=== PATIENT | male | born 1965 | race Caucasian/White ===

== ENCOUNTER 2018-05-09 08:10 | Day surgery (SDC) | payer MEDICAID ==
[2018-05-08 14:50] LABS: BASOPHILS % (AUTO) 0.2 % (0-1); EOSINOPHILS # (AUTO) 0.3 X10'3 (0-0.9); EOSINOPHILS % (AUTO) 6.9 % (0-6); LYMPHOCYTES # (AUTO) 1.5 X10'3 (1.1-4.8); LYMPHOCYTES % (AUTO) 30.2 % (21-51); MEAN CORPUSCULAR HEMOGLOBIN 29.7 PG (27.0-31.0); MEAN CORPUSCULAR HGB CONC 34.4 % (33.0-36.5); MEAN CORPUSCULAR VOLUME 86.6 FL (78-98); MONOCYTES # (AUTO) 0.6 X10'3 (0-0.9); NEUTROPHILS # (AUTO) 2.4 X10'3 (1.8-7.7); NEUTROPHILS % (AUTO) 49.7 % (42-75); PRE OP HEMOGLOBIN 14.1 g/dL (14.0-17.9); PRE OP PLATELET COUNT 212 X10'3 (140-440); RED BLOOD COUNT 4.73 X10'6 (4.70-6.10); RED CELL DISTRIBUTION WIDTH 13.7 % (11.5-14.5)
[2018-05-08 15:00] LABS: CLARITY,URINE CLEAR (Clear); COLOR,URINE YELLOW (Yellow); GLUCOSE, URINE NEGATIVE (Neg); KETONES,URINE NEGATIVE (Neg); LEUKOCYTE ESTERASE ,URINE NEGATIVE (Neg); NITRITES, URINE NEGATIVE (Neg); OCCULT BLOOD,URINE NEGATIVE (Neg); PROTEIN,URINE NEGATIVE (Neg); UROBILINOGEN,URINE 0.2 E.U/dL (0.2-1.0)
[2018-05-08 15:01] LABS: UA COLLECTION TYPE CLN CATCH MIDSTREAM
[2018-05-08 15:06] LABS: ALBUMIN 3.4 G/DL (3.4-5.0); ALBUMIN/GLOBULIN RATIO 0.9 (1.1-1.5); ALKALINE PHOSPHATASE 82 IU/L (46-116); BLOOD UREA NITROGEN 21 MG/DL (7-18); BUN/CREATININE RATIO 21.9 (5.4-32.0); CHLORIDE 106 MMOL/L (99-107); CREATININE 0.96 MG/DL (0.60-1.10); PRE OP ALT 74 U/L (30-65); PRE OP ANION GAP 6 (8-16); PRE OP AST 39 U/L (10-37); PRE OP BILIRUB, TOTAL 0.5 MG/DL (0.0-1.0); PRE OP GLUCOSE 105 MG/DL (70-104); PRE OP POTASSIUM 3.9 MMOL/L (3.4-5.1); PRE OP SODIUM 139 MMOL/L (135-145); TOTAL CARBON DIOXIDE 26.7 MMOL/L (24-32); eGFR 82 ML/MIN
[~2018-05-09] VITALS: Ht 177.8 cm; Wt 91.0 kg
[2018-05-09] VITALS (17 sets, daily range): BP systolic 128–154; BP diastolic 79–110
[~2018-05-09 08:10] MED LIST: IBUP-24 PO; famotidine 20mg tablet PO ONE; ringers solution, lacted 1,000 ML IV SCH
[2018-05-09] MEDS ORDERED: BUPIVAcaine/PF 7.5mg/ml (0.75%) 10ml vial ONE (08:59)
[2018-05-09] MEDS ORDERED: ceFAZolin 1000mg inj ONE (08:59)
[2018-05-09] MEDS ORDERED: ceFOXitin 2 GM ADDvantage bag 100 ML IV ONE (09:00)
[2018-05-09] MEDS ORDERED: dexamethasone sod phosphate 10mg/ml inj ONE (09:09)
[2018-05-09] MEDS ORDERED: ondansetron/PF 4mg/2ml inj ONE (09:09)
[2018-05-09] MEDS ORDERED: sevoflurane 250ml liquid IH ONE (09:09)
[2018-05-09] MEDS ORDERED: midazolam 2 mg/2 ml injection ONE (09:13)
[2018-05-09] MEDS ORDERED: fentaNYL /PF 50mcg/ml 5ml ampule ONE (09:13)
[2018-05-09] MEDS ORDERED: propofol inj 20 ML IV ONE (09:14)
[2018-05-09] MEDS ORDERED: rocuronium 10mg/ml inj IV ONE (09:14)
[2018-05-09] MEDS ORDERED: LIDOcaine 2% (20mg/ml) 5ml vial ONE (09:14)
[2018-05-09] MEDS ORDERED: neostigmine methylsulfate 1 MG/ML 10ml vial ONE (09:46)
[2018-05-09] MEDS ORDERED: glycopyrrolate 0.2mg/ml inj ONE (09:46)
[2018-05-09] MEDS ORDERED: ondansetron/PF 4mg/2ml inj IV PRN (09:50)
[2018-05-09] MEDS ORDERED: ringers solution, lacted 1,000 ML IV SCH (09:50)
[2018-05-09] MEDS ORDERED: fentaNYL/PF 50MCG/1 ML 2ML syringe IV PRN ×2 (09:50)
[2018-05-09] MEDS ORDERED: labetalol 20mg/4ml (5mg/ml) syringe IV PRN (09:50)
[2018-05-09] MEDS ORDERED: morphine 4 MG/ML inj SYRINge IV PRN ×2 (09:50)
[2018-05-09] MEDS: hydrALAZINE 20mg/ml inj. IV PRN ×2 (11:43→11:54)
== END 2018-05-09 13:45 | disposition home or self-care (01) ==
LOC: PAS 08:10
PROVIDERS: ATTEND Surgery
DX: K40.91 Unilateral inguinal hernia, without obstruction or gangrene, recurrent (principal); K40.90 Unilateral inguinal hernia, without obstruction or gangrene, not specified as recurrent; F15.90 Other stimulant use, unspecified, uncomplicated; F17.210 Nicotine dependence, cigarettes, uncomplicated; G89.29 Other chronic pain; Z88.2 Allergy status to sulfonamides; Z79.1 Long term (current) use of non-steroidal anti-inflammatories (NSAID); Z72.89 Other problems related to lifestyle; Z86.14 Personal history of Methicillin resistant Staphylococcus aureus infection; Z98.52 Vasectomy status; Z98.890 Other specified postprocedural states
CPT/HCPCS: 36415; 49650; 49651; 80053; 81003; 85025; 93005; A4315; A6258; C1781; J0360; J0690; J0694; J1100; J2001; J2250; J2270; J2405; J2704; J2710; J3010; J3490; J7120

== ENCOUNTER 2022-12-04 13:17 | Emergency (ER) | payer MEDICAID ==
[~2022-12-04] VITALS: Ht 179.1 cm; Wt 79.5 kg
[~2022-12-04 13:17] MED LIST changes: -famotidine 20mg tablet PO ONE; -ringers solution, lacted 1,000 ML IV SCH
[2022-12-04 13:27] VITALS: BP 144/104
[2022-12-04] MEDS ORDERED: ketorolac trometh. 30mg/ml inj. IM ONE (14:40)
--- NOTE | 2022-12-04 15:14 | NUR ---
shoulder immobilizer placed on left arm.
== END 2022-12-04 15:22 | disposition home or self-care (01) ==
LOC: ER 13:17
DX: M25.512 Pain in left shoulder (principal); Z87.81 Personal history of (healed) traumatic fracture; Z88.2 Allergy status to sulfonamides; Z79.899 Other long term (current) drug therapy; Z79.1 Long term (current) use of non-steroidal anti-inflammatories (NSAID)
CPT/HCPCS: 73030; 96372; 99283; J1885; A4565

== ENCOUNTER 2022-12-06 07:16 | Emergency (ER) | payer MEDICAID ==
[2022-12-06 08:12] VITALS: BP 150/104
[2022-12-06] MEDS ORDERED: LIDOcaine 1% W/epiNEPHrine 1:100,000 20ml vial SQ ONE (08:40)
[2022-12-06] MEDS ORDERED: oxymetazoline 15 ML nasal spray NS ONE (08:40)
[2022-12-06] MEDS ORDERED: ascorbic acid 500mg tablet PO ONE (08:40)
[2022-12-06] MEDS ORDERED: LIDOCAINE 2%/EPI 1:100,000 inj. Multi-dose 20 ML VIAL SQ ONE (09:00)
[2022-12-06 09:53] LABS: BASOPHILS % (AUTO) 0.4 % (0-1); EOSINOPHILS # (AUTO) 0.4 X10'3 (0-0.9); EOSINOPHILS % (AUTO) 4.3 % (0-6); LYMPHOCYTES # (AUTO) 1.1 X10'3 (1.1-4.8); LYMPHOCYTES % (AUTO) 12.5 % (21-51); MEAN CORPUSCULAR HEMOGLOBIN 29.4 PG (27.0-31.0); MEAN CORPUSCULAR HGB CONC 33.3 g/dL (33.0-36.5); MEAN CORPUSCULAR VOLUME 88.1 FL (78-98); MEAN PLATELET VOLUME 7.4 FL (7.4-10.4); MONOCYTES # (AUTO) 1.2 X10'3 (0-0.9); MONOCYTES % (AUTO) 13.7 % (2-12); NEUTROPHILS # (AUTO) 6.1 X10'3 (1.8-7.7); NEUTROPHILS % (AUTO) 69.1 % (42-75); PLATELET COUNT 246 X10'3 (140-440); RED BLOOD COUNT 4.76 X10'6 (4.70-6.10); RED CELL DISTRIBUTION WIDTH 13.5 % (11.5-14.5); WHITE BLOOD COUNT 8.8 X10'3 (4.5-11.0)
[2022-12-06 10:00] LABS: APTT 26 SECONDS (22-32)
[2022-12-06 10:03] LABS: ALBUMIN 3.7 G/DL (3.4-5.0); ANION GAP 7 (8-16); BLOOD UREA NITROGEN 20 MG/DL (7-18); BUN/CREATININE RATIO 21.5 (5.4-32.0); CALCIUM 8.3 MG/DL (8.5-10.1); CHLORIDE 103 MMOL/L (99-107); CREATININE 0.93 MG/DL (0.60-1.10); GLUCOSE 105 MG/DL (70-104); POTASSIUM 3.8 MMOL/L (3.5-5.1); SODIUM 139 MMOL/L (135-145); TOTAL CARBON DIOXIDE 29.4 MMOL/L (24-32); eGFR 84 ML/MIN
== END 2022-12-06 10:14 | disposition home or self-care (01) ==
LOC: ER 07:17
DX: R04.0 Epistaxis (principal); R42 Dizziness and giddiness; G89.29 Other chronic pain; Z88.2 Allergy status to sulfonamides; Z79.899 Other long term (current) drug therapy; Z72.89 Other problems related to lifestyle
CPT/HCPCS: 30901; 36415; 80048; 85025; 85610; 85730; 99284

== ENCOUNTER 2023-01-01 06:28 | Inpatient (IN) | payer MEDICAID ==
[~2023-01-01] VITALS: Ht 177.8 cm; Wt 77.0 kg
[2023-01-01 08:09] LABS: BASOPHILS % (AUTO) 0.1 % (0-1); EOSINOPHILS % (AUTO) 0 % (0-6); HEMOGLOBIN 13.8 g/dl (14.0-17.9); LYMPHOCYTES # (AUTO) 0.7 X10'3 (1.1-4.8); LYMPHOCYTES % (AUTO) 3.5 % (21-51); MEAN CORPUSCULAR HGB CONC 33.7 g/dL (33.0-36.5); MEAN CORPUSCULAR VOLUME 86.1 FL (78-98); MEAN PLATELET VOLUME 7.4 FL (7.4-10.4); MONOCYTES % (AUTO) 5.2 % (2-12); NEUTROPHILS # (AUTO) 17.9 X10'3 (1.8-7.7); NEUTROPHILS % (AUTO) 91.2 % (42-75); PLATELET COUNT 228 X10'3 (140-440); RED BLOOD COUNT 4.76 X10'6 (4.70-6.10); RED CELL DISTRIBUTION WIDTH 13.4 % (11.5-14.5); WHITE BLOOD COUNT 19.6 X10'3 (4.5-11.0)
[2023-01-01] MEDS ORDERED: vancomycin/NS 1 GM ADD-VANTAGE 250 ML IV ONE (08:15)
[2023-01-01] MEDS ORDERED: piperacillin/tazo 3.375gm/50ml 50 ML IV ONE (08:15)
[2023-01-01] MEDS ORDERED: normal saline 1000ML IV soln IVB ONE (08:15)
[2023-01-01 08:28] LABS: ALANINE AMINOTRANSFERASE 44 U/L (12-78); ALBUMIN 2.9 G/DL (3.4-5.0); ALBUMIN/GLOBULIN RATIO 0.8 (1.1-1.5); ALKALINE PHOSPHATASE 76 IU/L (46-116); ANION GAP 9 (8-16); ASPARTATE AMINO TRANSFERASE 41 U/L (10-37); BILIRUBIN,TOTAL 1.1 MG/DL (0.1-1.0); BLOOD UREA NITROGEN 22 MG/DL (7-18); BUN/CREATININE RATIO 16.2 (5.4-32.0); CALCIUM 8.5 MG/DL (8.5-10.1); CHLORIDE 99 MMOL/L (99-107); CREATININE 1.36 MG/DL (0.60-1.10); GLUCOSE 129 MG/DL (70-104); MAGNESIUM 1.6 MG/DL (1.5-2.4); PLATELET ESTIMATE NORMAL; POTASSIUM 3.6 MMOL/L (3.5-5.1); SODIUM 134 MMOL/L (135-145); TOTAL CARBON DIOXIDE 25.9 MMOL/L (24-32); TOTAL CELLS COUNTED 100; TOTAL PROTEIN 6.7 G/DL (6.4-8.2); eGFR 54 ML/MIN
[2023-01-01] MEDS ORDERED: ketorolac trometh. 30mg/ml inj. IV ONE (08:40)
[2023-01-01 10:02] LABS: APPEARANCE,SYNOVIAL FLUID CLOUDY; COLOR,SYNOVIAL FLUID YELLOW; SYN RBC 1025 /CU MM (0); SYN WBC 2150 /CU MM (0-200)
[2023-01-01] MEDS ORDERED: HYDROcodone/acetaminophen 10/325mg tab PO PRN (10:40)
[2023-01-01] MEDS ORDERED: ondansetron/PF 4mg/2ml inj IV PRN (10:40)
[2023-01-01] MEDS ORDERED: acetaminophen 650mg rectal suppository RC PRN (10:40)
[2023-01-01] MEDS ORDERED: HYDROmorphone inj. 0.5 MG/0.5 ML DISP.SYRIN IV PRN (10:40)
[2023-01-01] MEDS ORDERED: magnesium Cl slow-release 64mg tablet PO PRN (10:40)
[2023-01-01] MEDS ORDERED: potassium Cl 20 mEq SR tablet PO PRN ×2 (10:40)
[2023-01-01] MEDS ORDERED: HYDROmorphone/PF 0.2 MG/ML SYRINGE IV PRN (10:40)
[2023-01-01] MEDS ORDERED: ondansetron 4mg rapidly disintigrating tab PO PRN (10:40)
[2023-01-01] MEDS ORDERED: magnesium hydroxide 30ml (MOM) UD suspension PO PRN (10:40)
[2023-01-01] MEDS ORDERED: mag hydrox/Alum hydrox/simeth 30ml oral suspension PO PRN (10:40)
[2023-01-01] MEDS: normal saline 1000ml 1,000 ML IV SCH ×2 (10:40→20:40)
[2023-01-01] MEDS ORDERED: acetaminophen 325mg tablet PO PRN (10:40)
[2023-01-01] MEDS ORDERED: HYDROcodone/acetaminophen 5mg/325mg tablet PO PRN (10:40)
[2023-01-01] MEDS ORDERED: magnesium 4gm in 100ml NS 100 ML IV PRN (10:40)
[2023-01-01] MEDS ORDERED: potassium Cl 40MEQ/1/2NS 520ml 520 ML IV PRN (10:40)
[2023-01-01 11:46] LABS: PHOSPHORUS 2.7 MG/DL (2.3-4.5)
[2023-01-01 12:48] VITALS: BP 103/59
[2023-01-01] MEDS: morphine 2 MG/ML inj. syringe IV ONE ×2 (13:03→13:23)
[2023-01-01] MEDS: piperacillin/tazo 3.375gm/50ml 50 ML IV SCH (16:25)
[2023-01-01] MEDS ORDERED: NO HOME MEDS (19:02)
[2023-01-01] MEDS: docusate sod 100mg capsule PO SCH (20:37)
[2023-01-01] MEDS: vancomycin/NS 1 GM ADD-VANTAGE 250 ML IV SCH (20:37)
[2023-01-01] MEDS: K and/or MAG REPLACEMENT MC SCH (20:38)
[2023-01-01] MEDS: heparin, porcine 5000 units/ml vial SQ SCH (20:38)
[2023-01-01 22:31] VITALS: BP 94/59
[2023-01-02 00:23] VITALS: BP 113/64
[2023-01-02] MEDS: piperacillin/tazo 3.375gm/50ml 50 ML IV SCH ×3 (00:36→16:12)
[2023-01-02] MEDS: normal saline 1000ml 1,000 ML IV SCH ×2 (04:09→16:40)
[2023-01-02 06:00] VITALS: BP 106/62
[2023-01-02 06:01] LABS: BASOPHILS % (AUTO) 0.2 % (0-1); EOSINOPHILS # (AUTO) 0.2 X10'3 (0-0.9); EOSINOPHILS % (AUTO) 0.8 % (0-6); HEMATOCRIT 35.3 % (42.0-52.0); HEMOGLOBIN 12.2 g/dl (14.0-17.9); LYMPHOCYTES # (AUTO) 1.2 X10'3 (1.1-4.8); LYMPHOCYTES % (AUTO) 5.2 % (21-51); MEAN CORPUSCULAR HEMOGLOBIN 29.5 PG (27.0-31.0); MEAN CORPUSCULAR HGB CONC 34.4 g/dL (33.0-36.5); MEAN CORPUSCULAR VOLUME 85.6 FL (78-98); MEAN PLATELET VOLUME 7.9 FL (7.4-10.4); MONOCYTES # (AUTO) 0.9 X10'3 (0-0.9); NEUTROPHILS # (AUTO) 20.1 X10'3 (1.8-7.7); NEUTROPHILS % (AUTO) 89.8 % (42-75); PLATELET COUNT 201 X10'3 (140-440); RED BLOOD COUNT 4.13 X10'6 (4.70-6.10); RED CELL DISTRIBUTION WIDTH 13.1 % (11.5-14.5); WHITE BLOOD COUNT 22.4 X10'3 (4.5-11.0)
--- NOTE | 2023-01-02 06:15 | NUR ---
Problems reprioritized. Patient report given, questions answered & plan of care reviewed with Rajwinder MARSH.
[2023-01-02 07:09] LABS: ALANINE AMINOTRANSFERASE 33 U/L (12-78); ALBUMIN 2.2 G/DL (3.4-5.0); ALBUMIN/GLOBULIN RATIO 0.6 (1.1-1.5); ALKALINE PHOSPHATASE 61 IU/L (46-116); ANION GAP 9 (8-16); ASPARTATE AMINO TRANSFERASE 25 U/L (10-37); BILIRUBIN,TOTAL 0.4 MG/DL (0.1-1.0); BLOOD UREA NITROGEN 34 MG/DL (7-18); BUN/CREATININE RATIO 26.8 (5.4-32.0); CHLORIDE 103 MMOL/L (99-107); CREATININE 1.27 MG/DL (0.60-1.10); GLUCOSE 108 MG/DL (70-104); POTASSIUM 3.6 MMOL/L (3.5-5.1); SODIUM 134 MMOL/L (135-145); TOTAL PROTEIN 5.9 G/DL (6.4-8.2); eGFR 58 ML/MIN
[2023-01-02] MEDS: K and/or MAG REPLACEMENT MC SCH ×2 (08:00→20:00)
[2023-01-02] MEDS: docusate sod 100mg capsule PO SCH ×2 (08:17→19:51)
[2023-01-02] MEDS: heparin, porcine 5000 units/ml vial SQ SCH ×2 (08:18→19:47)
[2023-01-02] MEDS: acetaminophen 325mg tablet PO PRN (08:33)
[2023-01-02] MEDS ORDERED: azithromycin/NS 500mg/250ml 250 ML IV ONE (08:45)
[2023-01-02 11:00] VITALS: BP 110/85
[2023-01-02] MEDS: vancomycin/NS 1 GM ADD-VANTAGE 250 ML IV SCH ×2 (11:24→21:32)
[2023-01-02] MEDS: albuterol 2.5 MG/3 ML nebule NEB PRN ×2 (14:09→21:03)
[2023-01-02 18:00] VITALS: BP 125/77
--- NOTE | 2023-01-02 18:18 | NUR ---
Report to Tato MARSH
--- NOTE | 2023-01-02 18:30 | NUR ---
Patient in room [facility]. I have received report from BAILEY MARSH and had the opportunity to ask questions and assume patient care.
[2023-01-02] MEDS: ibuprofen tablet 400 MG TABLET PO PRN (19:46)
[2023-01-02] MEDS ORDERED: VANCOMYCIN LEVEL IV ONE (20:30)
[2023-01-02 22:00] VITALS: BP 127/88
[2023-01-03] MEDS: piperacillin/tazo 3.375gm/50ml 50 ML IV SCH ×3 (00:40→16:11)
[2023-01-03] MEDS: temazepam 15mg capsule PO PRN (00:43)
[2023-01-03] MEDS: ibuprofen tablet 400 MG TABLET PO PRN ×3 (05:10→16:13)
[2023-01-03] MEDS: normal saline 1000ml 1,000 ML IV SCH ×3 (05:12→20:12)
[2023-01-03 05:13] LABS: BASOPHILS % (AUTO) 0.1 % (0-1); EOSINOPHILS # (AUTO) 0.3 X10'3 (0-0.9); EOSINOPHILS % (AUTO) 2.1 % (0-6); HEMATOCRIT 33.6 % (42.0-52.0); HEMOGLOBIN 11.2 g/dl (14.0-17.9); LYMPHOCYTES # (AUTO) 1.2 X10'3 (1.1-4.8); LYMPHOCYTES % (AUTO) 8.1 % (21-51); MEAN CORPUSCULAR HEMOGLOBIN 28.7 PG (27.0-31.0); MEAN CORPUSCULAR HGB CONC 33.4 g/dL (33.0-36.5); MEAN CORPUSCULAR VOLUME 85.9 FL (78-98); MEAN PLATELET VOLUME 7.8 FL (7.4-10.4); MONOCYTES # (AUTO) 0.7 X10'3 (0-0.9); MONOCYTES % (AUTO) 4.5 % (2-12); NEUTROPHILS # (AUTO) 12.9 X10'3 (1.8-7.7); NEUTROPHILS % (AUTO) 85.2 % (42-75); PLATELET COUNT 217 X10'3 (140-440); RED BLOOD COUNT 3.91 X10'6 (4.70-6.10); RED CELL DISTRIBUTION WIDTH 13.5 % (11.5-14.5); WHITE BLOOD COUNT 15.2 X10'3 (4.5-11.0)
[2023-01-03 05:29] LABS: ALANINE AMINOTRANSFERASE 27 U/L (12-78); ALBUMIN 2.3 G/DL (3.4-5.0); ALBUMIN/GLOBULIN RATIO 0.6 (1.1-1.5); ALKALINE PHOSPHATASE 73 IU/L (46-116); ANION GAP 7 (8-16); ASPARTATE AMINO TRANSFERASE 21 U/L (10-37); BILIRUBIN,TOTAL 0.3 MG/DL (0.1-1.0); BLOOD UREA NITROGEN 20 MG/DL (7-18); BUN/CREATININE RATIO 18.5 (5.4-32.0); CALCIUM 8.2 MG/DL (8.5-10.1); CHLORIDE 110 MMOL/L (99-107); CREATININE 1.08 MG/DL (0.60-1.10); GLUCOSE 105 MG/DL (70-104); MAGNESIUM 2.2 MG/DL (1.5-2.4); POTASSIUM 3.7 MMOL/L (3.5-5.1); SODIUM 143 MMOL/L (135-145); TOTAL CARBON DIOXIDE 26.4 MMOL/L (24-32); TOTAL PROTEIN 6.3 G/DL (6.4-8.2); eGFR 70 ML/MIN
[2023-01-03 06:00] VITALS: BP 124/80
--- NOTE | 2023-01-03 06:30 | NUR ---
Problems reprioritized. Patient report given, questions answered & plan of care reviewed with PAYAM RN.
--- NOTE | 2023-01-03 06:46 | NUR ---
Patient in room [facility]. I have received report from Tato MARSH and had the opportunity to ask questions and assume patient care.
[2023-01-03] MEDS: azithromycin/NS 500mg/250ml 250 ML IV SCH (07:26)
[2023-01-03] MEDS: docusate sod 100mg capsule PO SCH ×2 (07:28→20:00)
[2023-01-03] MEDS: heparin, porcine 5000 units/ml vial SQ SCH ×2 (07:31→20:00)
[2023-01-03] MEDS: K and/or MAG REPLACEMENT MC SCH ×2 (08:00→20:00)
[2023-01-03] MEDS ORDERED: VANCOmycin 1250MG/NS 250ml Bag 250 ML IV SCH (09:00)
--- NOTE | 2023-01-03 09:15 | NUR ---
MOTRIN GIVEN EARLY AM, CLEARED WITH PHARMACY OKAY TO GIVE 0830 DOSE AT THIS TIME.
[2023-01-03] MEDS: acetaminophen 325mg tablet PO PRN (09:46)
[2023-01-03 11:59] VITALS: BP 133/91
[2023-01-03 16:00] VITALS: BP 137/92
[2023-01-03 18:00] VITALS: BP 146/92
--- NOTE | 2023-01-03 18:40 | NUR ---
Patient in room [facility]. I have received report from PAYAM MARSH and had the opportunity to ask questions and assume patient care.
[2023-01-03 22:00] VITALS: BP 138/86
[2023-01-04] MEDS: piperacillin/tazo 3.375gm/50ml 50 ML IV SCH ×2 (00:27→09:46)
[2023-01-04] MEDS: ibuprofen tablet 400 MG TABLET PO PRN ×3 (00:49→21:24)
[2023-01-04] MEDS: temazepam 15mg capsule PO PRN (01:01)
[2023-01-04] MEDS: normal saline 1000ml 1,000 ML IV SCH (05:18)
--- NOTE | 2023-01-04 06:30 | NUR ---
Problems reprioritized. Patient report given, questions answered & plan of care reviewed with DIMAS MARSH.
[2023-01-04 06:54] LABS: BASOPHILS # (AUTO) 0.1 X10'3 (0-0.2); BASOPHILS % (AUTO) 0.5 % (0-1); EOSINOPHILS # (AUTO) 0.4 X10'3 (0-0.9); EOSINOPHILS % (AUTO) 3.4 % (0-6); HEMATOCRIT 35.2 % (42.0-52.0); HEMOGLOBIN 11.8 g/dl (14.0-17.9); LYMPHOCYTES # (AUTO) 1.5 X10'3 (1.1-4.8); LYMPHOCYTES % (AUTO) 13.8 % (21-51); MEAN CORPUSCULAR HEMOGLOBIN 29.1 PG (27.0-31.0); MEAN CORPUSCULAR HGB CONC 33.6 g/dL (33.0-36.5); MEAN CORPUSCULAR VOLUME 86.6 FL (78-98); MEAN PLATELET VOLUME 8.4 FL (7.4-10.4); MONOCYTES # (AUTO) 0.8 X10'3 (0-0.9); MONOCYTES % (AUTO) 7.2 % (2-12); NEUTROPHILS # (AUTO) 8.1 X10'3 (1.8-7.7); NEUTROPHILS % (AUTO) 75.1 % (42-75); PLATELET COUNT 231 X10'3 (140-440); RED BLOOD COUNT 4.06 X10'6 (4.70-6.10); RED CELL DISTRIBUTION WIDTH 13.4 % (11.5-14.5); WHITE BLOOD COUNT 10.8 X10'3 (4.5-11.0)
[2023-01-04 07:00] VITALS: BP 135/85
[2023-01-04 07:48] LABS: ALANINE AMINOTRANSFERASE 29 U/L (12-78); ALBUMIN 2.2 G/DL (3.4-5.0); ALBUMIN/GLOBULIN RATIO 0.6 (1.1-1.5); ALKALINE PHOSPHATASE 112 IU/L (46-116); ANION GAP 9 (8-16); ASPARTATE AMINO TRANSFERASE 18 U/L (10-37); BILIRUBIN,TOTAL 0.3 MG/DL (0.1-1.0); BLOOD UREA NITROGEN 13 MG/DL (7-18); BUN/CREATININE RATIO 13.4 (5.4-32.0); CALCIUM 8.5 MG/DL (8.5-10.1); CHLORIDE 110 MMOL/L (99-107); CREATININE 0.97 MG/DL (0.60-1.10); GLUCOSE 86 MG/DL (70-104); MAGNESIUM 1.9 MG/DL (1.5-2.4); POTASSIUM 3.9 MMOL/L (3.5-5.1); SODIUM 143 MMOL/L (135-145); TOTAL CARBON DIOXIDE 24.5 MMOL/L (24-32); TOTAL PROTEIN 6.2 G/DL (6.4-8.2); eGFR 80 ML/MIN
[2023-01-04] MEDS: docusate sod 100mg capsule PO SCH ×3 (08:00→21:11)
[2023-01-04] MEDS: K and/or MAG REPLACEMENT MC SCH ×2 (08:00→20:00)
[2023-01-04] MEDS: azithromycin/NS 500mg/250ml 250 ML IV SCH (09:46)
[2023-01-04] MEDS: heparin, porcine 5000 units/ml vial SQ SCH ×2 (09:47→21:11)
[2023-01-04] MEDS: CefTRIAXone 2gm/D5W 50ml BAG 50 ML IV SCH ×2 (10:35→21:10)
[2023-01-04 12:00] VITALS: BP 130/85
--- NOTE | 2023-01-04 12:05 | NUR ---
Rocephin will not scan
--- NOTE | 2023-01-04 16:25 | NUR ---
Pt ambulating throughout the shift, no problems noted
--- NOTE | 2023-01-04 18:49 | NUR ---
Patient in room [facility]. I have received report from MAXIMO Diaz and had the opportunity to ask questions and assume patient care.
[2023-01-04] MEDS ORDERED: VANCOMYCIN LEVEL IV ONE (20:30)
[2023-01-04] MEDS ORDERED: guaiFENesin/codeine phos 10ml UD oral syrup PO PRN (21:50)
[2023-01-05 05:55] LABS: BASOPHILS % (AUTO) 0.4 % (0-1); EOSINOPHILS # (AUTO) 0.4 X10'3 (0-0.9); EOSINOPHILS % (AUTO) 4.4 % (0-6); HEMATOCRIT 33.4 % (42.0-52.0); HEMOGLOBIN 11.3 g/dl (14.0-17.9); LYMPHOCYTES # (AUTO) 1.6 X10'3 (1.1-4.8); LYMPHOCYTES % (AUTO) 17.5 % (21-51); MEAN CORPUSCULAR HGB CONC 33.9 g/dL (33.0-36.5); MEAN CORPUSCULAR VOLUME 85.6 FL (78-98); MEAN PLATELET VOLUME 7.5 FL (7.4-10.4); MONOCYTES # (AUTO) 1.1 X10'3 (0-0.9); MONOCYTES % (AUTO) 12.2 % (2-12); NEUTROPHILS % (AUTO) 65.5 % (42-75); PLATELET COUNT 262 X10'3 (140-440); RED CELL DISTRIBUTION WIDTH 13.7 % (11.5-14.5); WHITE BLOOD COUNT 9.2 X10'3 (4.5-11.0)
[2023-01-05 06:21] LABS: ALANINE AMINOTRANSFERASE 34 U/L (12-78); ALBUMIN 2.1 G/DL (3.4-5.0); ALBUMIN/GLOBULIN RATIO 0.5 (1.1-1.5); ALKALINE PHOSPHATASE 76 IU/L (46-116); ANION GAP 8 (8-16); ASPARTATE AMINO TRANSFERASE 26 U/L (10-37); BILIRUBIN,TOTAL 0.2 MG/DL (0.1-1.0); BLOOD UREA NITROGEN 14 MG/DL (7-18); BUN/CREATININE RATIO 15.2 (5.4-32.0); CALCIUM 8.2 MG/DL (8.5-10.1); CHLORIDE 108 MMOL/L (99-107); CREATININE 0.92 MG/DL (0.60-1.10); GLUCOSE 102 MG/DL (70-104); MAGNESIUM 1.9 MG/DL (1.5-2.4); POTASSIUM 3.7 MMOL/L (3.5-5.1); SODIUM 142 MMOL/L (135-145); TOTAL CARBON DIOXIDE 25.8 MMOL/L (24-32); TOTAL PROTEIN 6.2 G/DL (6.4-8.2); eGFR 85 ML/MIN
--- NOTE | 2023-01-05 06:47 | NUR ---
Problems reprioritized. Patient report given, questions answered & plan of care reviewed with MAXIMO Vargas.
[2023-01-05 07:01] LABS: PLATELET ESTIMATE NORMAL; TOTAL CELLS COUNTED 100
[2023-01-05 07:39] VITALS: BP 145/91
[2023-01-05 07:42] LABS: HIV ANTIBODY 1&2 RAPID NON-REACTIVE (Neg)
[2023-01-05] MEDS: docusate sod 100mg capsule PO SCH ×2 (08:00→20:23)
[2023-01-05] MEDS: K and/or MAG REPLACEMENT MC SCH ×2 (08:00→20:00)
[2023-01-05] MEDS: CefTRIAXone 2gm/D5W 50ml BAG 50 ML IV SCH ×2 (08:47→20:15)
[2023-01-05] MEDS: heparin, porcine 5000 units/ml vial SQ SCH ×2 (08:48→20:23)
[2023-01-05] MEDS: ibuprofen tablet 400 MG TABLET PO PRN ×2 (09:14→20:23)
[2023-01-05] MEDS ORDERED: LIDOcaine 1%/PF 5ML 10 MG/ML VIAL IJ ONE (10:05)
--- NOTE | 2023-01-05 11:35 | NUR ---
Initial: Pt admit for sepsis, PNA, acute renal failure with hyponatremia, and joint effusion of left shoulder region. Pt on a regular diet and eating well, documented with 100% PO intake of first seven meals and average 78% PO intake of five most recent meals. See nutrition interventions below that were d/w dietary to provide additional nutrition to further assist with meeting estimated nutrient needs. LBM 01/04. Will continue to follow. Recommendations: 1) Continue regular diet 2) Yogurt WB, smoothie WL, shake WS 3) Routine bowel care 4) Weekly scaled weights Addendum: 01/05/23 at [address] Amended: Links added.
[2023-01-05 12:30] LABS: APPEARANCE,CSF CLEAR; CSF RBC 37 /CU MM (0); CSF SUPERNATANT COLOR COLORLESS; CSF VOLUME 4.4 ML; CSF WBC CT 1 /CU MM (0-5); TUBE# COUNTED 3
[2023-01-05 16:43] LABS: GLUCOSE,CSF 65 MG/DL (40-75); TOTAL PROTEIN,CSF 37 MG/DL (15-45)
[2023-01-05 18:00] VITALS: BP 163/102
[2023-01-05] MEDS ORDERED: GADOTERATE MEGLUMINE 7.5 MMOL/15 ML VIAL IV ONE (18:09)
--- NOTE | 2023-01-05 18:15 | NUR ---
Patient in room [facility]. I have received report from MAXIMO Vargas and had the opportunity to ask questions and assume patient care.
[2023-01-05 22:00] VITALS: BP 163/89
[2023-01-06 05:30] VITALS: BP 138/70
[2023-01-06 06:11] LABS: BASOPHILS % (AUTO) 0.3 % (0-1); EOSINOPHILS # (AUTO) 0.4 X10'3 (0-0.9); EOSINOPHILS % (AUTO) 3.9 % (0-6); HEMATOCRIT 34.8 % (42.0-52.0); HEMOGLOBIN 11.9 g/dl (14.0-17.9); LYMPHOCYTES # (AUTO) 1.5 X10'3 (1.1-4.8); LYMPHOCYTES % (AUTO) 13.4 % (21-51); MEAN CORPUSCULAR HEMOGLOBIN 29.2 PG (27.0-31.0); MEAN CORPUSCULAR HGB CONC 34.2 g/dL (33.0-36.5); MEAN CORPUSCULAR VOLUME 85.5 FL (78-98); MEAN PLATELET VOLUME 7.4 FL (7.4-10.4); MONOCYTES # (AUTO) 1.6 X10'3 (0-0.9); MONOCYTES % (AUTO) 14.2 % (2-12); NEUTROPHILS # (AUTO) 7.7 X10'3 (1.8-7.7); NEUTROPHILS % (AUTO) 68.2 % (42-75); PLATELET COUNT 285 X10'3 (140-440); RED BLOOD COUNT 4.07 X10'6 (4.70-6.10); RED CELL DISTRIBUTION WIDTH 13.3 % (11.5-14.5); WHITE BLOOD COUNT 11.3 X10'3 (4.5-11.0)
[2023-01-06 06:23] LABS: ALANINE AMINOTRANSFERASE 42 U/L (12-78); ALBUMIN 2.2 G/DL (3.4-5.0); ALBUMIN/GLOBULIN RATIO 0.5 (1.1-1.5); ALKALINE PHOSPHATASE 86 IU/L (46-116); ANION GAP 6 (8-16); ASPARTATE AMINO TRANSFERASE 31 U/L (10-37); BILIRUBIN,TOTAL 0.3 MG/DL (0.1-1.0); BLOOD UREA NITROGEN 14 MG/DL (7-18); BUN/CREATININE RATIO 14.6 (5.4-32.0); CALCIUM 8.4 MG/DL (8.5-10.1); CHLORIDE 105 MMOL/L (99-107); CREATININE 0.96 MG/DL (0.60-1.10); GLUCOSE 121 MG/DL (70-104); POTASSIUM 3.6 MMOL/L (3.5-5.1); SODIUM 139 MMOL/L (135-145); TOTAL CARBON DIOXIDE 27.7 MMOL/L (24-32); TOTAL PROTEIN 6.7 G/DL (6.4-8.2); eGFR 81 ML/MIN
--- NOTE | 2023-01-06 06:50 | NUR ---
Patient in room [facility]. I have received report from MAXIMO Chen and had the opportunity to ask questions and assume patient care.
--- NOTE | 2023-01-06 06:55 | NUR ---
Problems reprioritized. Patient report given, questions answered & plan of care reviewed with MAXIMO Jacobo.
[2023-01-06] MEDS: K and/or MAG REPLACEMENT MC SCH (07:21)
[2023-01-06] MEDS: heparin, porcine 5000 units/ml vial SQ SCH (08:00)
[2023-01-06] MEDS: docusate sod 100mg capsule PO SCH (08:00)
[2023-01-06] MEDS: CefTRIAXone 2gm/D5W 50ml BAG 50 ML IV SCH (08:34)
--- NOTE | 2023-01-06 08:43 | NUR ---
Student Medication Administration: For this medication-pass time frame, all medication were reviewed, dispensed, administered and documented per hospital policy by Diana Couch student nurse and instructor Jayla Yadav.
[2023-01-06 09:42] VITALS: BP 126/73
[2023-01-06] MEDS ORDERED: levoFLOXACIN 750MG TABLET PO SCH (11:00)
[2023-01-06] MEDS ORDERED: LEVO750T68 PO (11:25)
[2023-01-06] MEDS ORDERED: ALBU2.5V7 NEB (11:25)
--- NOTE | 2023-01-06 13:15 | NUR ---
DC inst provided to pt. IV DC'd, tip intact. All belongings sent w/pt. Pt ambulated to cab.
--- NOTE | 2023-01-06 19:13 | NUR ---
Student documentation: I have reviewed and agree with all interventions, assessments performed and documented by Sarika Couch student nurse, by Dali Yadav RN, instructor.
== END 2023-01-06 14:32 | disposition home or self-care (01) | DRG 720 ==
LOC: ER 06:28 → ED HOLD 10:46 → EDBEDREQ 11:19 → SUR 3N 11:56
PROVIDERS: ADMIT Family Medicine; ATTEND Family Medicine
PROC: 0R9K3ZZ Drainage of Left Shoulder Joint, Percutaneous Approach (ICD-10-PCS; principal; 2023-01-01)
PROC: 009U3ZX Drainage of Spinal Canal, Percutaneous Approach, Diagnostic (ICD-10-PCS; 2023-01-05)
DX: A40.3 Sepsis due to Streptococcus pneumoniae (principal); N17.0 Acute kidney failure with tubular necrosis; E87.1 Hypo-osmolality and hyponatremia; M25.412 Effusion, left shoulder; Z20.822 Contact with and (suspected) exposure to COVID-19; G89.29 Other chronic pain; R51.9 Headache, unspecified; J18.9 Pneumonia, unspecified organism; M24.412 Recurrent dislocation, left shoulder; Z28.310 Unvaccinated for COVID-19; Z88.2 Allergy status to sulfonamides
CPT/HCPCS: 10060; 36415; 70450; 70553; 71045; 71046; 73030; 80053; 80202; 83605; 83735; 84100; 84145; 85007; 85025; 86703; 87015; 87040; 87070; 87077; 87081; 87186; 87635; 89051; 93005; 94640; 94760; 96365; 96366; 96368; 96375; 99285; A6258; A9575; C9803; G0378; J0456; J0696; J1644; J1885; J2543; J3370; J7030